=== PATIENT | male | born 1995 | race Caucasian/White ===

== ENCOUNTER 2022-09-13 06:10 | Emergency (ER) | payer SELFPAY ==
[2022-09-13 06:21] VITALS: BP 137/88; PULSE 74; RESP 18; TEMP 36.4; O2SAT 100; BMI 28.5
--- NOTE | 2022-09-13 06:25 | ED.EYEPROB ---
HPI - Eye Problem General Chief complaint: Eye Problems Stated complaint: something in right eye Time Seen by Provider: 09/13/22 06:21 Source: patient Mode of arrival: Ambulatory History of Present Illness HPI Narrative: 27-year-old male smoker with noncontributory medical history presents for evaluation of irritation in his right eye. He states that he was working with metallic objects and thinks he got a piece of metal shaving in his right eye. His tetanus is up-to-date. He denies the use of any corrective lenses. He denies any blurring of his vision. He has no other complaints and is otherwise well and free of complaint Related Data Allergies Allergy/AdvReac Type Severity Reaction Status Date / Time No Known Drug Allergies Allergy Verified 09/13/22 06:29 Review of Systems Review of Systems Narrative: GENERAL: Denies chills, fatigue, malaise, fever, sweats. HEENT: See HPI RESPIRATORY: Denies dyspnea, cough, wheezing, hemoptysis, sputum. CARDIOVASCULAR: Denies chest pain, palpitations, orthopnea, edema, GASTROINTESTINAL: Denies nausea, vomiting, abdominal pain, diarrhea, constipation, melena. : Denies dysuria, frequency, incontinence, hematuria, urinary retention. MUSCULOSKELETAL: denies weakness, joint pain, or bony pain SKIN: Denies rash, skin lesions, or other NEUROLOGIC: Denies weakness, headache, numbness, change in speech, confusion, seizures, incoordination. PSYCHIATRIC: No concerning psychosocial issues. 12 point review of systems is negative except for those stated above Patient History Social History Smoking Status: Current every day smoker Smoking Status: Current every day smoker Substance Use Type: does not use Exam Narrative Exam Narrative: GEN: AOx3 and in mild distress EYES: Right eye with small metallic foreign body noted at the 3 o'clock position, upper lid everted and no other foreign bodies noted. Very minimal scleral injection noted. Minimal fluoroscein uptake Pupils are equal, round, and reactive to light and accommodation. Extraoccular muscles are intact bilaterally. There is no subconjunctival hemorrhage or exudate. CHEST: Lungs are clear to auscultation bilaterally and free of wheezes, rales, or rhonchi. Heart rate is regular rhythm, there are no murmurs, clicks, rubs, or gallops. There is no chest wall tenderness. ABD: Abdomen is soft and nontender. There is no guarding or rebound. Bowel sounds are normal in all 4 quadrants. There is no mass or organomegaly. EXT: Full painless ROM of all extremities with no loss of sensation or strength. SKIN: Warm, pink, and dry. No erythema or rash Initial Vital Signs Initial Vital Signs: Vital Signs Temperature 97.5 F L 09/13/22 06:21 Pulse Rate 74 09/13/22 06:21 Respiratory Rate 18 09/13/22 06:21 Blood Pressure 137/88 09/13/22 06:21 Pulse Oximetry 100 09/13/22 06:21 Oxygen Delivery Method 09/13/22 06:21 Procedures Foreign Body EYE Location: eye (R) Topical anesthetic used: proparacaine Foreign body: metal Evidence of corneal penetration: No Technique: irrigation, cotton tip swab and needle Procedure performed under: direct visualization with magnification Post-procedure medication: ophthalmic antibiotic and topical anesthetic Patient tolerated procedure: well Course Orders Ordered: Discontinued Medications Fluorescein Sodium (Fluorescein 1 Mg Strip) 1 mg EYE-RIGHT NOW ONE Stop: 09/13/22 06:25 Last Admin: 09/13/22 06:27 Dose: 1 mg Documented By: WILMER Ofloxacin (Ofloxacin 0.3% Ophth 5 Ml) 1 drops EYE-RIGHT NOW ONE Stop: 09/13/22 06:41 Last Admin: 09/13/22 06:51 Dose: 1 box Documented By: KAMLA Proparacaine HCl (Proparacaine 0.5% Ophth Phuong) 1 drops EYE-RIGHT NOW ONE Stop: 09/13/22 06:25 Last Admin: 09/13/22 06:27 Dose: 1 drop Documented By: WILMER Vital Signs Vital signs: Vital Signs - 8 hr 09/13/22 06:21 Temperature 97.5 F L Pulse Rate 74 Respiratory Rate 18 Blood Pressure 137/88 Pulse Oximetry 100 Oxygen Delivery Method Room Air Discharge Plan Departure Patient Disposition: Home Clinical Impression: Corneal abrasion, Acute foreign body of cornea Instructions: DI for Corneal Foreign Body-Eye Activity Restrictions/Additional Instructions: *You have been diagnosed with [metallic foreign body right eye with minimal corneal abrasion] *What to do: *Ofloxacin drops - 1-2 drops every 2 hours while awake until better *Proparacaine distilled down to 0.05% - 1-2 drops every 45-60 minutes for pain *Please follow up with your Dr. Anderson or Dr. Ibrahim at [facility]. Please call them tomorrow morning (the numbers noted below) and let them know that you were seen in the emergency department and we would like you to be seen in follow-up *Return to Emergency Department if you should have any new, worsening or concerning symptoms Referrals: Norbert Anderson MD [Physician] - Visit Report Forms: Patient Portal/API
[2022-09-13] MEDS: PROPARACAINE 0.5% OPHTH SOL 1 DROPS EYE-RIGHT (06:27)
[2022-09-13] MEDS: FLUORESCEIN 1 MG STRIP EYE-RIGHT (06:27)
[2022-09-13] MEDS: OFLOXACIN 0.3% OPHTH 5 ML 1 DROPS EYE-RIGHT (06:51)
== END 2022-09-13 06:57 | disposition home or self-care (01) ==
PROVIDERS: Emergency Provider Emergency Medicine
DX: T15.01XA Foreign body in cornea, right eye, initial encounter (principal); W45.8XXA Other foreign body or object entering through skin, initial encounter
CPT/HCPCS: 65205; 99282